=== PATIENT | female | born 1980 | race Two or more races ===

== ENCOUNTER 2025-09-06 13:44 | Outpatient (CLI) | payer SELFPAY ==
--- NOTE | 2025-09-06 14:00 | CRLHL7_ITS ---
For Patients: As a result of the Cures Act, medical imaging exams and procedure reports are released immediately into your electronic medical record. You may view this report before your referring provider. If you have questions, please contact your health care provider. LMP: 07/23/2025. CANDIS by LMP: 04/30/2026. GA: 6w, 3d. INDICATION: with presence of an intrauterine device. TECHNIQUE: Transvaginal and transabdominal obstetrical ultrasound imaging was obtained. CRL: N/A. FHR: N/A. GESTATIONAL SAC: 0.6 cm, 5w, 2d. YOLK SAC: Not visualized. RIGHT OVARY: Within normal limits. 3.5 x 1.9 x 2.2 CL. LEFT OVARY: Within normal limits. 3.0 x 2.4 x 1.9 cm. IMPRESSION: 1. No intrauterine device is present. 2. Intrauterine gestational sac appears to be present measuring 6.2 mm, 5 weeks 2 days. No pole. Possible small developing yolk sac. 3. No subchorionic hemorrhage. Incidental corpus luteal cyst right ovary. All Lemon M.D. Diagnostic Radiologist [email or web address] bM/Dictated by: All Lemon MD @ 09/06/2025 3:23:00 PM (Electronically Signed)
== END 2025-09-06 13:45 | disposition home or self-care (01) ==
LOC: US 13:50
PROVIDERS: PCP Obstetrics & Gynecology; Visit Provider Obstetrics & Gynecology
DX: O36.80X0 Pregnancy with inconclusive fetal viability, not applicable or unspecified (principal)
CPT/HCPCS: 76801; 76817; T1013

== ENCOUNTER 2025-09-06 15:38 | Outpatient (CLI) | payer OTHER, SELFPAY | END 2025-09-06 15:39 | disposition home or self-care (01) | LOC: NFLDREF 15:39 | PROVIDERS: PCP Obstetrics & Gynecology; Visit Provider Obstetrics & Gynecology | DX: O36.80X0 Pregnancy with inconclusive fetal viability, not applicable or unspecified (principal) | CPT/HCPCS: 84702; T1013 ==

== ENCOUNTER 2025-09-08 12:14 | Outpatient (CLI) | payer SELFPAY | END 2025-09-08 12:15 | disposition home or self-care (01) | LOC: LAB 12:15 | PROVIDERS: PCP Obstetrics & Gynecology | DX: O36.80X0 Pregnancy with inconclusive fetal viability, not applicable or unspecified (principal) | CPT/HCPCS: 36415; 84702 ==

== ENCOUNTER 2025-09-10 11:40 | Outpatient (CLI) | payer SELFPAY | END 2025-09-10 11:41 | disposition home or self-care (01) | LOC: NFLDREF 11:41 | PROVIDERS: PCP Obstetrics & Gynecology; Visit Provider Obstetrics & Gynecology | DX: O26.30 Retained intrauterine contraceptive device in pregnancy, unspecified trimester (principal) | CPT/HCPCS: 84702 ==

== ENCOUNTER 2025-09-11 08:44 | Outpatient (CLI) | payer SELFPAY ==
--- NOTE | 2025-09-11 08:15 | CRLHL7_ITS ---
For Patients: As a result of the Century Cures Act, medical imaging exams and procedure reports are released immediately into your electronic medical record. You may view this report before your referring provider. If you have questions, please contact your health care provider. OB ULTRASOUND INDICATION: with inconclusive viability. TECHNIQUE: Real time grayscale imaging of the fetus was performed. Transvaginal. Transvaginal imaging performed to better demonstrate the endometrium and ovaries. LMP: 07/23/2025. CANDIS by LMP: 04/29/2026. GA: 7 w, 1 d. Previous US: Yes 09/06/2025. GA: 5 w, 2 d by gestational sac. CRL: N/A. FHR: N/A. Gestational sac: 0.8 cm. Appears within normal limits. Yolk sac: 4.0 mm. Appears within normal limits. Right ovary: Within normal limits. 2.6 x 2.0 x 2.6 cm. CL. Left ovary: Within normal limits. 2.4 x 1.5 x 1.8 cm. IMPRESSION: 1. Intrauterine gestational sac measures 8 mm, 5 weeks 4 days, previously measuring 6.2 mm 5 weeks 2 days. 2. Yolk sac measures 4 mm. 3. No pole is present. 4. Corpus luteal cyst right ovary. No ectopic. All Lemon M.D. Diagnostic Radiologist [email or web address] JENNIFER/emily diaz/Dictated by: All Lemon MD @ 09/11/2025 9:47:00 AM (Electronically Signed)
== END 2025-09-11 08:45 | disposition home or self-care (01) ==
LOC: US 08:45
PROVIDERS: PCP Obstetrics & Gynecology; Visit Provider Obstetrics & Gynecology
DX: O36.80X0 Pregnancy with inconclusive fetal viability, not applicable or unspecified (principal); O34.81 Maternal care for other abnormalities of pelvic organs, first trimester; N83.11 Corpus luteum cyst of right ovary; Z3A.08 8 weeks gestation of pregnancy
CPT/HCPCS: 76817